=== PATIENT | female | born 1985 | race Hispanic/Latino ===

== ENCOUNTER 2022-06-16 08:54 | Emergency (ER) | payer MEDICAID, OTHER ==
[~2022-06-16] VITALS: Ht 160 cm; Wt 95.3 kg
[2022-06-16 09:23] VITALS: BP 110/70
[2022-06-16] MEDS ORDERED: CYCLOBENZAPRINE HCL 10 MG TABLET PO ONE (09:30)
[2022-06-16] MEDS ORDERED: FAMOTIDINE 20MG TAB PO ONE (09:30)
[2022-06-16] MEDS ORDERED: IBUPROFEN 800 MG TAB PO ONE (09:30)
[2022-06-16] MEDS ORDERED: CYCL10TA16 PO (10:20)
[2022-06-16] MEDS ORDERED: IBUP-1493 PO (10:20)
== END 2022-06-16 10:30 | disposition home or self-care (01) ==
LOC: EDH 08:54
DX: S16.1XXA Strain of muscle, fascia and tendon at neck level, initial encounter (principal); E78.00 Pure hypercholesterolemia, unspecified; Z79.1 Long term (current) use of non-steroidal anti-inflammatories (NSAID); X58.XXXA Exposure to other specified factors, initial encounter; Y93.89 Activity, other specified; Y92.89 Other specified places as the place of occurrence of the external cause; Y99.8 Other external cause status
CPT/HCPCS: 72040

== ENCOUNTER 2024-03-02 16:34 | Emergency (ER) | payer MEDICAID ==
[~2024-03-02] VITALS: Ht 160 cm; Wt 102.1 kg
[~2024-03-02 16:34] MED LIST: CYCL10TA16 PO; IBUP-1493 PO
[2024-03-02] MEDS ORDERED: IBUP-2077 PO (19:50)
[2024-03-02] MEDS: HYDROCODONE/ACETAMINOPHEN 5/325 MG TAB PO ONE (20:00)
[2024-03-02 20:03] VITALS: BP 120/70; PULSE 62; RESP 16; O2SAT 100
== END 2024-03-02 20:11 | disposition home or self-care (01) ==
LOC: EDH 16:34
DX: S52.591A Other fractures of lower end of right radius, initial encounter for closed fracture (principal); E78.00 Pure hypercholesterolemia, unspecified; Z79.899 Other long term (current) drug therapy; Z98.890 Other specified postprocedural states; Z90.49 Acquired absence of other specified parts of digestive tract; Z90.710 Acquired absence of both cervix and uterus; W01.0XXA Fall on same level from slipping, tripping and stumbling without subsequent striking against object, initial encounter; Y93.89 Activity, other specified; Y92.89 Other specified places as the place of occurrence of the external cause; Y99.8 Other external cause status
CPT/HCPCS: 25605; 73110

== ENCOUNTER 2024-03-17 09:59 | Emergency (ER) | payer MEDICAID ==
[~2024-03-17] VITALS: Ht 160 cm; Wt 99.8 kg
[~2024-03-17 09:59] MED LIST changes: +IBUP-2077 PO
[2024-03-17 11:04] VITALS: BP 132/89; PULSE 80; RESP 18; O2SAT 98
[2024-03-17] MEDS: IBUPROFEN 600 MG TABLET PO ONE (11:11)
== END 2024-03-17 11:42 | disposition home or self-care (01) ==
LOC: EDH 09:59
DX: S52.511A Displaced fracture of right radial styloid process, initial encounter for closed fracture (principal); E78.00 Pure hypercholesterolemia, unspecified; W18.39XA Other fall on same level, initial encounter; Y93.89 Activity, other specified; Y92.89 Other specified places as the place of occurrence of the external cause; Y99.8 Other external cause status; S52.501A Unspecified fracture of the lower end of right radius, initial encounter for closed fracture
CPT/HCPCS: 73110